=== PATIENT | male | born 1975 | race American Indian/Alaskan Native ===

== ENCOUNTER 2019-01-19 22:24 | Emergency (ER) | payer OTHER ==
[2019-01-19] MEDS ORDERED: ASPIRIN PO ONE (22:37)
[2019-01-19] MEDS ORDERED: ZOFRAN IV ONE (22:43)
[2019-01-19] MEDS ORDERED: PEPCID IV ONE (22:43)
[2019-01-19] MEDS ORDERED: TORADOL IV ONE (22:43)
--- NOTE | 2019-01-19 22:48 | Emergency Department Report ---
ED Chest Pain HPI - General Chief Complaint: Chest Pain Stated Complaint: CHEST PAIN Time Seen by Provider: 01/19/19 22:43 Source: patient Mode of arrival: Stretcher Limitations: No Limitations - History of Present Illness Initial Comments: Patient is a 43-year-old -[place] male who is presenting with chest pain. Patient states that he began having chest pain yesterday which has been constant. Patient states as a sharp pain in the central chest from the mid sternum down to the epigastrium. He states he's had a mild nonproductive cough but denies any nausea vomiting fevers chills. Patient states that the child spoke in some marijuana today which did not help his symptoms. Patient states he's had an episode of cardiac arrest several years ago from cocaine abuse. Patient is adamant that he did not use cocaine in the last several days. Severity scale (0 -10): 8 Quality: tightness, sharp Improves With: nothing Worsens With: nothing re: diaphoresis. denies: nausea, vomting, dyspnea, sense of impending doom Other Symptoms: cough. denies: fever, syncope, rash, acid taste in mouth, leg swelling - Related Data Previous Rx's Medication Instructions Recorded Last Taken Type Cyclobenzaprine [Flexeril] 10 mg PO TID PRN #30 tablet 02/19/16 Unknown Rx Ibuprofen [Motrin] 600 mg PO Q8H PRN #40 tablet 02/19/16 Unknown Rx Cyclobenzaprine [Flexeril] 10 mg PO TID PRN #20 tablet 04/19/16 Unknown Rx Ibuprofen [Motrin 800 MG tab] 800 mg PO Q8HR PRN #30 tablet 04/19/16 Unknown Rx Famotidine [Pepcid] 20 mg PO BID #20 tablet 01/20/19 Unknown Rx Allergies Allergy/AdvReac Type Severity Reaction Status Date / Time No Known Allergies Allergy Verified 02/19/16 02:12 Heart Score - HEART Score History: Slightly suspicious EKG: Non-specific Age: < 45 Risk factors: No known risk factors Troponin: < normal limit HEART Score: 1 ED Review of Systems ROS: Stated complaint: CHEST PAIN Other details as noted in HPI Comment: All other systems reviewed and negative ED Past Medical Hx - Past Medical History Previous Medical History?: Yes - Surgical History Past Surgical History?: Yes - Social History Smoking Status: Current Every Day Smoker Substance Use Type: Alcohol, Marijuana - Medications Home Medications: Home Medications Medication Instructions Recorded Confirmed Last Taken Type Cyclobenzaprine [Flexeril] 10 mg PO TID PRN #30 tablet 02/19/16 Unknown Rx Ibuprofen [Motrin] 600 mg PO Q8H PRN #40 tablet 02/19/16 Unknown Rx Cyclobenzaprine [Flexeril] 10 mg PO TID PRN #20 tablet 04/19/16 Unknown Rx Ibuprofen [Motrin 800 MG tab] 800 mg PO Q8HR PRN #30 tablet 04/19/16 Unknown Rx Famotidine [Pepcid] 20 mg PO BID #20 tablet 01/20/19 Unknown Rx ED Physical Exam - General Limitations: No Limitations General appearance: alert, anxious, in distress (crying) - Head Head exam: Present: atraumatic, normocephalic - Eye Eye exam: Present: normal appearance - ENT ENT exam: Present: mucous membranes moist - Neck Neck exam: Present: normal inspection - Respiratory Respiratory exam: Present: normal lung sounds bilaterally, chest wall tenderness (left chest with palpation). Absent: respiratory distress, wheezes, rales, rhonchi - Cardiovascular Cardiovascular Exam: Present: regular rate, normal rhythm, normal heart sounds. Absent: systolic murmur, diastolic murmur, rubs, gallop - GI/Abdominal GI/Abdominal exam: Present: soft, normal bowel sounds. Absent: distended, tenderness, guarding, rebound - Rectal Rectal exam: Present: deferred - Extremities Exam Extremities exam: Present: normal inspection - Back Exam Back exam: Present: normal inspection - Neurological Exam Neurological exam: Present: alert, oriented X3 - Psychiatric Psychiatric exam: Present: normal affect, normal mood - Skin Skin exam: Present: warm, dry, intact, normal color. Absent: rash ED Medical Decision Making - Lab Data Result diagrams: 01/19/19 23:17 01/19/19 23:17 Lab Results 01/19/19 01/19/19 01/19/19 Range/Units 22:40 23:17 23:17 WBC 5.2 (4.5-11.0) K/mm3 RBC 5.11 H (3.65-5.03) M/mm3 Hgb 15.1 (11.8-15.2) gm/dl Hct 45.6 (35.5-45.6) % MCV 89 (84-94) fl MCH 30 (28-32) pg MCHC 33 (32-34) % RDW 15.8 H (13.2-15.2) % Plt Count 280 (140-440) K/mm3 Lymph % (Auto) 26.4 (13.4-35.0) % [place] % (Auto) 7.0 (0.0-7.3) % Eos % (Auto) 1.0 (0.0-4.3) % Baso % (Auto) 1.2 (0.0-1.8) % Lymph # 1.4 (1.2-5.4) K/mm3 [place] # 0.4 (0.0-0.8) K/mm3 Eos # 0.0 (0.0-0.4) K/mm3 Baso # 0.1 (0.0-0.1) K/mm3 Seg Neutrophils % 64.4 (40.0-70.0) % Seg Neutrophils # 3.4 (1.8-7.7) K/mm3 D-Dimer (0-234) ng/mlDDU Sodium (137-145) mmol/L Potassium (3.6-5.0) mmol/L Chloride (98-107) mmol/L Carbon Dioxide (22-30) mmol/L Anion Gap mmol/L BUN (9-20) mg/dL Creatinine (0.8-1.5) mg/dL Estimated GFR ml/min BUN/Creatinine Ratio % Glucose (75-100) mg/dL Calcium (8.4-10.2) mg/dL Total Bilirubin (0.1-1.2) mg/dL AST (5-40) units/L ALT (7-56) units/L Alkaline Phosphatase (35-129) units/L Troponin T < 0.010 (0.00-0.029) ng/mL Total Protein (6.3-8.2) g/dL Albumin (3.9-5) g/dL Albumin/Globulin Ratio % Lipase (13-60) units/L Urine Opiates Screen Presumptive negative Urine Methadone Screen Presumptive negative Ur Barbiturates Screen Presumptive negative Ur Phencyclidine Scrn Presumptive negative Ur Amphetamines Screen Presumptive negative U Benzodiazepines Scrn Presumptive negative Urine Cocaine Screen Presumptive positive U Marijuana (THC) Screen Presumptive negative Drugs of Abuse Note Disclamer Plasma/Serum Alcohol (0-0.07) % 01/19/19 01/19/19 01/19/19 Range/Units 23:17 23:17 23:17 WBC (4.5-11.0) K/mm3 RBC (3.65-5.03) M/mm3 Hgb (11.8-15.2) gm/dl Hct (35.5-45.6) % MCV (84-94) fl MCH (28-32) pg MCHC (32-34) % RDW (13.2-15.2) % Plt Count (140-440) K/mm3 Lymph % (Auto) (13.4-35.0) % [place] % (Auto) (0.0-7.3) % Eos % (Auto) (0.0-4.3) % Baso % (Auto) (0.0-1.8) % Lymph # (1.2-5.4) K/mm3 [place] # (0.0-0.8) K/mm3 Eos # (0.0-0.4) K/mm3 Baso # (0.0-0.1) K/mm3 Seg Neutrophils % (40.0-70.0) % Seg Neutrophils # (1.8-7.7) K/mm3 D-Dimer 278.76 H (0-234) ng/mlDDU Sodium (137-145) mmol/L Potassium (3.6-5.0) mmol/L Chloride (98-107) mmol/L Carbon Dioxide (22-30) mmol/L Anion Gap mmol/L BUN (9-20) mg/dL Creatinine (0.8-1.5) mg/dL Estimated GFR ml/min BUN/Creatinine Ratio % Glucose (75-100) mg/dL Calcium (8.4-10.2) mg/dL Total Bilirubin (0.1-1.2) mg/dL AST (5-40) units/L ALT (7-56) units/L Alkaline Phosphatase (35-129) units/L Troponin T (0.00-0.029) ng/mL Total Protein (6.3-8.2) g/dL Albumin (3.9-5) g/dL Albumin/Globulin Ratio % Lipase 171 H (13-60) units/L Urine Opiates Screen Urine Methadone Screen Ur Barbiturates Screen Ur Phencyclidine Scrn Ur Amphetamines Screen U Benzodiazepines Scrn Urine Cocaine Screen U Marijuana (THC) Screen Drugs of Abuse Note Plasma/Serum Alcohol 0.28 H (0-0.07) % 01/19/19 Range/Units 23:17 WBC (4.5-11.0) K/mm3 RBC (3.65-5.03) M/mm3 Hgb (11.8-15.2) gm/dl Hct (35.5-45.6) % MCV (84-94) fl MCH (28-32) pg MCHC (32-34) % RDW (13.2-15.2) % Plt Count (140-440) K/mm3 Lymph % (Auto) (13.4-35.0) % [place] % (Auto) (0.0-7.3) % Eos % (Auto) (0.0-4.3) % Baso % (Auto) (0.0-1.8) % Lymph # (1.2-5.4) K/mm3 [place] # (0.0-0.8) K/mm3 Eos # (0.0-0.4) K/mm3 Baso # (0.0-0.1) K/mm3 Seg Neutrophils % (40.0-70.0) % Seg Neutrophils # (1.8-7.7) K/mm3 D-Dimer (0-234) ng/mlDDU Sodium 140 (137-145) mmol/L Potassium 3.5 L (3.6-5.0) mmol/L Chloride 97.9 L (98-107) mmol/L Carbon Dioxide 25 (22-30) mmol/L Anion Gap 21 mmol/L BUN 7 L (9-20) mg/dL Creatinine 1.2 (0.8-1.5) mg/dL Estimated GFR > 60 ml/min BUN/Creatinine Ratio 6 % Glucose 78 (75-100) mg/dL Calcium 9.2 (8.4-10.2) mg/dL Total Bilirubin 0.20 (0.1-1.2) mg/dL AST 52 H (5-40) units/L ALT 28 (7-56) units/L Alkaline Phosphatase 90 (35-129) units/L Troponin T (0.00-0.029) ng/mL Total Protein 7.9 (6.3-8.2) g/dL Albumin 4.5 (3.9-5) g/dL Albumin/Globulin Ratio 1.3 % Lipase (13-60) units/L Urine Opiates Screen Urine Methadone Screen Ur Barbiturates Screen Ur Phencyclidine Scrn Ur Amphetamines Screen U Benzodiazepines Scrn Urine Cocaine Screen U Marijuana (THC) Screen Drugs of Abuse Note Plasma/Serum Alcohol (0-0.07) % - EKG Data -: EKG Interpreted by Me EKG shows normal: sinus rhythm, axis, intervals, QRS complexes, ST-T waves Rate: normal - EKG Data Interpretation: [facility] - Radiology Data Radiology results: report reviewed (CXR WNL) - Medical Decision Making Patient is a 43-year-old male who is presenting with chest and epigastric pain. Before even receiving any medications patient stopped crying and started becoming a lot more calm this began watching television. He did get his drug screen back showed he was cocaine positive. Patient laughed and states examination he didn't use cocaine he'll use marijuana. Patient is marijuana negative. Patient does admit to heavy drinking "yesterday". We had t his conversation it was 4 minutes after midnight and the patient laughed that he is last drink was yesterday. Patient is cleared at this time to be discharged home. Patient likely with some alcoholic gastritis and atypical chest pain secondary to cocaine abuse. Patient will be allowed to be discharged home soon as he has someone come get him who is clinically sober. Patient didn't also be discharged on his own in the morning. Critical care attestation.: If time is entered above; I have spent that time in minutes in the direct care of this critically ill patient, excluding procedure time. ED Disposition Clinical Impression: Atypical chest pain, Cocaine abuse Alcoholic gastritis Qualifiers: Chronicity: acute Gastritis bleeding: without bleeding Qualified Code(s): K29.20 - Alcoholic gastritis without bleeding Disposition: DC-01 TO HOME OR SELFCARE Is pt being admited?: No Does the pt Need Aspirin: No Condition: Stable Instructions: Chest Pain (ED), Cocaine Abuse (ED), Gastritis (ED) Referrals: SUZAN WASHINGTON MD [Primary Care Provider] - 3-5 Days Time of Disposition: 00:09
[2019-01-19 23:12] LABS: Amphetamine Screen,Urine PRESUMPTIVE NEGATIVE; Benzodiazepines Screen,Urine PRESUMPTIVE NEGATIVE; Cannabinoid Screen,Urine PRESUMPTIVE NEGATIVE; Methadone Screen,Urine PRESUMPTIVE NEGATIVE; Opiate Screen,Urine PRESUMPTIVE NEGATIVE
[2019-01-19 23:23] LABS: Cocaine Screen,Urine PRESUMPTIVE POSITIVE
--- NOTE | 2019-01-19 23:33 | XRay Report ---
XR CHEST 1V AP CLINICAL INDICATION: Male, 43 years of age. Chest Pain COMPARISON: None. Findings: Frontal view(s) of the chest obtained. Cardiac silhouette is within normal limits. No gr oss focal consolidation or effusion. No gross pneumothorax. IMPRESSION: No grossly acute findings. This document is electronically signed by Farida Das DO., January 19 2019 11:31:51 PM ET
[2019-01-20] LABS: Hematocrit 45.6 % (35.5-45.6); Hemoglobin 15.1 gm/dl (11.8-15.2); Mean Corpuscular Volume 89 fl (84-94); Red Blood Count 5.11 M/mm3 (3.65-5.03)
[2019-01-20 00:01] LABS: Alanine Aminotransferase 28 units/L (7-56); Albumin 4.5 g/dL (3.9-5); BUN/Creatinine Ratio 6; Basophils % (Auto) 1.2 % (0.0-1.8); Blood Urea Nitrogen 7 mg/dL (9-20); Calcium 9.2 mg/dL (8.4-10.2); Hemolysis Index 6; Lymphocytes # (Auto) 1.4 K/mm3 (1.2-5.4); Lymphocytes % (Auto) 26.4 % (13.4-35.0); Mean Corpuscular HGB Conc 33 % (32-34); Monocytes # (Auto) 0.4 K/mm3 (0.0-0.8); Platelet Count 280 K/mm3 (140-440); Red Cell Distribution Width 15.8 % (13.2-15.2)
[2019-01-20 00:02] LABS: Basophils # (Auto) 0.1 K/mm3 (0.0-0.1)
[2019-01-20 06:38] VITALS: BP 141/72
== END 2019-01-20 10:02 | disposition home or self-care (01) ==
LOC: ED 22:24
DX: F14.10 Cocaine abuse, uncomplicated (principal); K29.20 Alcoholic gastritis without bleeding
CPT/HCPCS: 36415; 71045; 80053; 80307; 83690; 84484; 85025; 85379; 93005; 93010; 96374; 96375; 99284; G0480; J1885; J2405; 80320

== ENCOUNTER 2020-01-29 19:14 | Emergency (ER) | payer SELFPAY ==
[2020-01-29] MEDS ORDERED: LORazepam 2 MG/ML VIAL IV ONE (19:43)
--- NOTE | 2020-01-29 19:48 | Emergency Department Report ---
<JOSE CORADO - Last Filed: 01/29/20 23:09> ED General Adult HPI - General Chief complaint: Arrhythmia/Palpitations Stated complaint: HEART RACE/DRUG RACE Time Seen by Provider: 01/29/20 19:42 Source: patient Mode of arrival: Ambulatory Limitations: No Limitations - History of Present Illness Initial comments: Patient is 44 years old male with history of substance abuse mainly ecstasy. Patient presented to the ER complaining of palpitation and shaking all over. Patient stated that he took ecstasy today and this is when his symptoms started. Patient stated that he took ecstasy before but he never had any issue like this before. Patient currently denying any chest pain, shortness of breath, headache, abdominal pain, weakness numbness or tingling sensation. Patient found to have a blood pressure of 180/120 and tachycardic at 120. EKG showed sinus tachycardia. Patient denied any suicidal or homicidal ideation. No visual or auditory hallucination. Patient also stated that he has been drinking alcohol. -: This afternoon Consistency: constant - Related Data Previous Rx's Medication Instructions Recorded Last Taken Type Cyclobenzaprine [Flexeril] 10 mg PO TID PRN #30 tablet 02/19/16 Unknown Rx Ibuprofen [Motrin] 600 mg PO Q8H PRN #40 tablet 02/19/16 Unknown Rx Cyclobenzaprine [Flexeril] 10 mg PO TID PRN #20 tablet 04/19/16 Unknown Rx Ibuprofen [Motrin 800 MG tab] 800 mg PO Q8HR PRN #30 tablet 04/19/16 Unknown Rx Famotidine [Pepcid] 20 mg PO BID #20 tablet 01/20/19 Unknown Rx Allergies Allergy/AdvReac Type Severity Reaction Status Date / Time No Known Allergies Allergy Verified 02/19/16 02:12 ED Review of Systems Comment: All other systems reviewed and negative Constitutional: denies: chills, fever Respiratory: denies: cough, shortness of breath, SOB with exertion, SOB at rest, wheezing Cardiovascular: palpitations. denies: chest pain Gastrointestinal: denies: abdominal pain, nausea, vomiting Musculoskeletal: denies: back pain Neurological: denies: headache, weakness, numbness, paresthesias, confusion, abnormal gait Psychiatric: anxiety. denies: auditory hallucinations, visual hallucinations, homicidal thoughts, suicidal thoughts ED Past Medical Hx - Past Medical History Previous Medical History?: No - Surgical History Past Surgical History?: No - Social History Smoking Status: Current Every Day Smoker Substance Use Type: Alcohol, Other - Medications Home Medications: Home Medications Medication Instructions Recorded Confirmed Last Taken Type Cyclobenzaprine [Flexeril] 10 mg PO TID PRN #30 tablet 02/19/16 Unknown Rx Ibuprofen [Motrin] 600 mg PO Q8H PRN #40 tablet 02/19/16 Unknown Rx Cyclobenzaprine [Flexeril] 10 mg PO TID PRN #20 tablet 04/19/16 Unknown Rx Ibuprofen [Motrin 800 MG tab] 800 mg PO Q8HR PRN #30 tablet 04/19/16 Unknown Rx Famotidine [Pepcid] 20 mg PO BID #20 tablet 01/20/19 Unknown Rx ED Physical Exam - General Limitations: No Limitations General appearance: alert, anxious, other (Jittery.) - Head Head exam: Present: atraumatic, normocephalic, normal inspection - Eye Eye exam: Present: normal appearance - ENT ENT exam: Present: normal exam, normal orophraynx, mucous membranes moist - Neck Neck exam: Present: normal inspection, full ROM. Absent: tenderness, meningismus, lymphadenopathy, thyromegaly - Respiratory Respiratory exam: Present: normal lung sounds bilaterally - Cardiovascular Cardiovascular Exam: Present: tachycardia - GI/Abdominal GI/Abdominal exam: Present: soft, normal bowel sounds. Absent: distended, tenderness, guarding, rebound, rigid, organomegaly, mass, bruit, pulsatile mass, hernia - Extremities Exam Extremities exam: Present: normal inspection, full ROM, normal capillary refill. Absent: tenderness, pedal edema, calf tenderness - Back Exam Back exam: Present: normal inspection, full ROM. Absent: CVA tenderness (R), CVA tenderness (L) - Neurological Exam Neurological exam: Present: alert, oriented X3, CN II-XII intact, normal gait, reflexes normal. Absent: motor sensory deficit - Psychiatric Psychiatric exam: Present: normal mood, agitated, anxious. Absent: manic, homicidal ideation, suicidal ideation - Skin Skin exam: Present: warm, intact, normal color ED Medical Decision Making - Lab Data Result diagrams: 01/29/20 19:58 01/29/20 19:58 - EKG Data -: EKG Interpreted by Me EKG shows normal: sinus rhythm Rate: tachycardia - EKG Data Interpretation: no acute changes - Medical Decision Making Patient is 44 years old male with history of substance abuse mainly ecstasy. Patient presented to the ER complaining of palpitation and shaking all over. Patient stated that he took ecstasy today and this is when his symptoms started. Patient stated that he took ecstasy before but he never had any issue like this before. Patient currently denying any chest pain, shortness of breath, headache, abdominal pain, weakness numbness or tingling sensation. Patient found to have a blood pressure of 180/120 and tachycardic at 120. EKG showed sinus tachycardia. Patient denied any suicidal or homicidal ideation. No visual or auditory hallucination. Patient also stated that he has been drinking alcohol. Patient received Ativan 2 mg IV. Patient heart rate went down to 90 and his blood pressure now is 124/70. Patient labs reviewed and showed UDS positive for methamphetamine and cocaine. ED Disposition Clinical Impression: Methamphetamine abuse, Cocaine abuse, Drug-induced psychotic disorder Disposition: DC-01 TO HOME OR SELFCARE Condition: Stable Instructions: Cocaine Abuse (ED), Methamphetamine Abuse (ED) Additional Instructions: Please avoid any further cocaine, methamphetamine, or any illicit drug use. Please follow-up with a primary care physician in the next few days. You have also been given multiple outpatient psychiatric referrals. Return to the emergency department with any worsening of your symptoms, thoughts of harming herself or others, or with any acute distress. Referrals: PRIMARY CARE, [Primary Care Provider] - 2-3 Days [facility] [Outside] - 2-3 Days [facility] [Provider Group] - 2-3 Days <IAN ALBERTO S - Last Filed: 01/30/20 11:10> ED Review of Systems ROS: Stated complaint: HEART RACE/DRUG RACE Other details as noted in HPI ED Course Vital Signs 01/29/20 01/29/20 01/29/20 19:18 19:23 19:30 Temperature 99.6 F Pulse Rate 122 H 122 H 122 H Respiratory 24 30 H Rate Blood Pressure 180/120 180/120 Blood Pressure [Left] O2 Sat by Pulse 100 97 Oximetry 01/29/20 01/29/20 01/29/20 19:46 20:00 20:16 Temperature Pulse Rate 121 H 116 H 117 H Respiratory 31 H 24 17 Rate Blood Pressure 167/113 174/111 Blood Pressure [Left] O2 Sat by Pulse 99 99 97 Oximetry 01/29/20 01/29/20 01/29/20 20:30 20:45 21:00 Temperature Pulse Rate 104 H 105 H 101 H Respiratory 14 14 13 Rate Blood Pressure 149/98 149/98 137/99 Blood Pressure [Left] O2 Sat by Pulse 96 97 96 Oximetry 01/29/20 01/29/20 01/29/20 21:16 21:30 21:46 Temperature Pulse Rate 114 H 104 H 97 H Respiratory 15 15 14 Rate Blood Pressure 149/98 139/99 137/99 Blood Pressure [Left] O2 Sat by Pulse 96 98 99 Oximetry 01/29/20 01/29/20 01/29/20 22:00 22:16 22:30 Temperature Pulse Rate 121 H 98 H 100 H Respiratory 18 14 14 Rate Blood Pressure 124/99 124/99 147/104 Blood Pressure [Left] O2 Sat by Pulse 97 99 95 Oximetry 01/29/20 01/29/20 01/30/20 22:46 22:53 02:00 Temperature Pulse Rate 100 H 105 H 87 Respiratory 12 15 15 Rate Blood Pressure 124/99 147/104 Blood Pressure 133/95 [Left] O2 Sat by Pulse 98 99 100 Oximetry 01/30/20 01/30/20 01/30/20 02:15 02:30 04:00 Temperature Pulse Rate 90 93 H 97 H Respiratory 17 12 Rate Blood Pressure Blood Pressure 149/104 152/98 137/99 [Left] O2 Sat by Pulse 98 100 Oximetry 01/30/20 01/30/20 06:00 07:29 Temperature 97.6 F Pulse Rate 90 90 Respiratory 18 Rate Blood Pressure Blood Pressure 131/97 147/98 [Left] O2 Sat by Pulse 97 Oximetry ED Medical Decision Making - Lab Data Result diagrams: 01/29/20 19:58 01/29/20 19:58 - Medical Decision Making This patient presented with drug-induced psychosis. He was seen by the psychiatric team this morning and at this time he appears awake, oriented, calm and appropriate. His labs have been reviewed and just shows some mild elevation in the AST. Vital signs are currently within normal limits including being afebrile. Patient does not meet criteria for requiring inpatient involuntary psychiatric treatment. He will be discharged home with outpatient referrals and has been instructed to return with any worsening of his symptoms or any acute distress. Critical care attestation.: If time is entered above; I have spent that time in minutes in the direct care of this critically ill patient, excluding procedure time. ED Disposition Is pt being admited?: No Time of Disposition: 11:10
[2020-01-29 20:10] LABS: Basophils # (Auto) 0.1 K/mm3 (0.0-0.1); Basophils % (Auto) 1.8 % (0.0-1.8); Eosinophils # (Auto) 0.1 K/mm3 (0.0-0.4); Eosinophils % (Auto) 1.1 % (0.0-4.3); Hematocrit 43.3 % (35.5-45.6); Hemoglobin 15.1 gm/dl (11.8-15.2); Lymphocytes # (Auto) 1.6 K/mm3 (1.2-5.4); Lymphocytes % (Auto) 24.5 % (13.4-35.0); Mean Corpuscular HGB Conc 35 % (32-34); Mean Corpuscular Volume 85 fl (84-94); Monocytes # (Auto) 0.8 K/mm3 (0.0-0.8); Monocytes % (Auto) 12.1 % (0.0-7.3); Platelet Count 255 K/mm3 (140-440); Red Blood Count 5.11 M/mm3 (3.65-5.03); Red Cell Distribution Width 14.7 % (13.2-15.2)
[2020-01-29 20:28] LABS: BUN/Creatinine Ratio 9; Blood Urea Nitrogen 11 mg/dL (9-20); Calcium 10.8 mg/dL (8.4-10.2); Hemolysis Index 6
[2020-01-29 20:31] LABS: Alanine Aminotransferase 31 units/L (7-56); Albumin 4.7 g/dL (3.9-5)
[2020-01-29 20:35] LABS: Bilirubin,Direct < 0.2 mg/dL (0-0.2)
[2020-01-29 22:37] LABS: Bacteria,Urine 1+ /HPF (Negative); Bilirubin,Urine NEG (Negative); Blood,Urine SM (Negative); Color,Urine Straw (Yellow); Mucus,Urine FEW /HPF; Protein,Urine <15 mg/dL mg/dL (Negative); Urobilinogen,Urine < 2.0 mg/dL (<2.0)
[2020-01-29 22:43] LABS: Benzodiazepines Screen,Urine PRESUMPTIVE NEGATIVE; Cannabinoid Screen,Urine PRESUMPTIVE NEGATIVE; Methadone Screen,Urine PRESUMPTIVE NEGATIVE; Opiate Screen,Urine PRESUMPTIVE NEGATIVE
[2020-01-29 23:00] LABS: Amphetamine Screen,Urine PRESUMPTIVE POSITIVE; Cocaine Screen,Urine PRESUMPTIVE POSITIVE
[2020-01-30 07:30] VITALS: BP 147/98
== END 2020-01-30 11:37 | disposition home or self-care (01) ==
LOC: ED 19:14
DX: F14.10 Cocaine abuse, uncomplicated (principal); F15.10 Other stimulant abuse, uncomplicated; Z76.5 Malingerer [conscious simulation]; F17.200 Nicotine dependence, unspecified, uncomplicated; Z79.899 Other long term (current) drug therapy
CPT/HCPCS: 36415; 80048; 80076; 80307; 81001; 85025; 93005; 96374; 99284; J2060; 80320; G0480